=== PATIENT | male | born 1935 | race African-American/Black ===

== ENCOUNTER → 2017-01-03 | Outpatient (CLI) | payer OTHER ==
[~2017-01-03] MED LIST: ALLOPURINOL100 MG PO; AMBIEN5 MG PO; CALCIUM ACETAT667 MG PO; CARDIZEM CD,CA240 MG PO; CATAPRES0.2 MG PO; CATAPRES0.3 MG PO; CLONIDINE HCL0.1 MG PO; CYANOCOBALAM1000 MCG PO; DIFLUCAN200 MG PO; DILTIAZEM 24HR120 MG PO; DOCUSATE SODIU100 MG PO; GENTAMICIN40 MG/1 ML IV; IRON325 M1 PO; LIPITOR40 MG PO; NORCO 5/3251 TABLET PO; NOVOLOG 10100 UNITS/ SC; NOVOLOG MI100 UNIT/M SC; NOVOLOG PE100 UNITS/ SC; POLYETHYLENE GL17 GM PO; ROCALTROL0.25 MCG PO; TAZTIA XT360 MG PO; ZYLOPRIM300 MG PO
== END | disposition home or self-care (01) ==
LOC: AMB 08:27
PROC: 02PYX3Z Removal of Infusion Device from Great Vessel, External Approach (ICD-10-PCS; principal; 2017-01-03)
DX: Z45.2 Encounter for adjustment and management of vascular access device (principal); N18.6 End stage renal disease; Z99.2 Dependence on renal dialysis

== ENCOUNTER 2017-01-25 09:57 | Day surgery (SDC) | payer OTHER ==
[~2017-01-25] VITALS: Ht 167.6 cm; Wt 57.6 kg
[~2017-01-25 09:57] MED LIST changes: +FLOMAX0.4 MG PO; +HYDRALAZINE HC100 MG PO; +NEPHRO-VITE,1 TABLET PO; +NORVASC5 MG PO
[2017-01-25 10:35] LABS: HEMATOCRIT 38.4 % (38.0-50.0); MCH 26.8 PG (29.0-34.0); MCHC 30.2 G/DL (30.0-36.0); MCV 88.7 FL (86-99); MEAN PLAT.VOLUME 9.9 uM^3 (9.0-12.4); PLATELET COUNT 104 K/uL (156-360); RBC DIS.WIDTH-SD 58.7 % (39-53); RED BLOOD COUNT 4.33 M/uL (4.00-5.50); WHITE BLOOD COUNT 7.1 K/uL (4.1-10.2)
[2017-01-25 10:46] VITALS: BP 139/70
[2017-01-25 10:47] LABS: CHLORIDE 103 mEq/L (99-109); POTASSIUM 4.8 mEq/L (3.7-5.4); SODIUM 141 mEq/L (136-147)
[2017-01-25 10:49] LABS: GLUCOSE 101 mg/dL (70-99)
[2017-01-25 10:50] LABS: ANION GAP 11 MEQ/L (2-14)
[2017-01-25 10:53] LABS: GFR ESTIMATE (CALCULATED) 13 mL/min/
[2017-01-25 10:54] LABS: UREA NITROGEN (BUN) 37 mg/dL (9-23)
[2017-01-25 11:40] LABS: METH RESISTANT S AUREUS PCR NEGATIVE (NEGATIVE)
[2017-01-25 11:41] LABS: PROBE CHECK PASS; SPECIMEN PROCESSING CONTROL PASS
[2017-01-25 13:45] LABS: POINT-OF-CARE METER ID UU13113675
[2017-01-25] MEDS ORDERED: NORCO 5/3251 TABLET PO (13:48)
[2017-01-25 14:19] VITALS: BP 137/71
[2017-01-25 15:23] VITALS: BP 132/68
== END 2017-01-25 15:20 | disposition home or self-care (01) ==
LOC: SDC 09:57
PROVIDERS: Surgery
PROC: 0WPG03Z Removal of Infusion Device from Peritoneal Cavity, Open Approach (ICD-10-PCS; principal; 2017-01-25)
DX: Z49.02 Encounter for fitting and adjustment of peritoneal dialysis catheter (principal); E11.22 Type 2 diabetes mellitus with diabetic chronic kidney disease; I12.0 Hypertensive chronic kidney disease with stage 5 chronic kidney disease or end stage renal disease; N18.6 End stage renal disease; Z99.2 Dependence on renal dialysis; E78.5 Hyperlipidemia, unspecified; Z79.899 Other long term (current) drug therapy; Z80.0 Family history of malignant neoplasm of digestive organs; Z84.1 Family history of disorders of kidney and ureter; Z85.46 Personal history of malignant neoplasm of prostate
CPT/HCPCS: 80048; 82948; 85027; 87641; J0690; S0020